=== PATIENT | female | born 1950 | race Caucasian/White ===

== ENCOUNTER 2023-03-03 17:43 | Emergency (ER) | payer MEDICARE, SELFPAY ==
--- NOTE | ~2023-03-03 | XR_ITS ---
EXAMINATION: XR chest 2V Exam Date/Time: 03/03/2023 18:05 CDT HISTORY: cough sob, x 16 days Comparison: 05/17/2007. RESULT: Lines, tubes, and devices: Right breast implant. Right axillary clips. Lungs and pleura: Senescent changes. Calcified left lower lung granuloma. Linear scar/atelectasis in the bilateral lung bases. Cardiomediastinal silhouette: Stable. Other: No acute osseous or upper abdominal finding. IMPRESSION: No acute cardiopulmonary process. Reviewed, dictated and finalized at location K.
[2023-03-03 17:57] VITALS: BP 141/65; PULSE 94; RESP 20; TEMP 35.9; O2SAT 97
--- NOTE | 2023-03-03 18:15 | ED.URI ---
HPI - URI/Sore Throat General Chief Complaint: Upper Respiratory Infection Stated Complaint: coughing Source: patient, family and RN notes reviewed Mode of arrival: ambulatory Limitations: no limitations History of Present Illness HPI Narrative: Patient is a 72-year-old female who presents to the [facility] with with complaints of ongoing cough and congestion since February 15. Patient states that she was seen by her primary care physician on the and was prescribed a 3 day course of azithromycin and Tessalon Perles. Patient states that her symptoms continued and she saw her primary care physician again on the it was prescribed a Medrol Dosepak and albuterol inhaler. Patient states that she has now finished the Medrol Dosepak but her symptoms have persisted. Patient reports a frequent productive cough with clear sputum. She reports nasal congestion and drainage. Denies recent fevers or chills. Denies sore throat, ear pain. Denies new shortness of or chest pain. States that she has intermittent shortness of breath due to smoking. Her respirations are currently unlabored. Related Data Home Medications Medication Instructions Recorded Confirmed albuterol sulfate 90 mcg/actuation 2 puff inhalation Q4H PRN 03/03/23 03/03/23 aerosol inhaler Shortness Of Breath Or Wheezing amitriptyline 50 mg tablet 50 mg PO DAILY 03/03/23 03/03/23 bupropion HCl 150 mg 24 hr tablet, 150 mg PO DAILY 03/03/23 03/03/23 extended release oxycodone-acetaminophen 7.5 mg-325 1 tablet PO QID 03/03/23 03/03/23 mg tablet trazodone 50 mg tablet 50 mg PO QHS 03/03/23 03/03/23 venlafaxine 150 mg 150 mg PO DAILY 03/03/23 03/03/23 capsule,extended release 24 hr Allergies Allergy/AdvReac Type Severity Reaction Status Date / Time No Known Allergies Allergy Verified 03/03/23 18:05 Review of Systems Review of Systems: CONSTITUTIONAL: Denies fever, chills, or sweats. EYES: Denies visual changes, redness, or discharge. ENT: Denies otalgia and sore throat. Reports nasal congestion and drainage. CARDIOVASCULAR: Denies chest pain, palpitations, or edema. RESPIRATORY: Reports cough but dyspnea. GASTROINTESTINAL: Denies abdominal pain, nausea, vomiting, or diarrhea. GENITOURINARY: Denies dysuria or hematuria. SKIN: Denies rash or itching. MUSCULOSKELETAL: Denies back pain, joint pain, or myalgia. NEUROLOGIC: Denies headache, numbness, or weakness. Pertinent positives per HPI. PMFSH Family History Family History Father Carcinoma of colon Social History Social History Alcohol intake: never Comments At the time of my signature, I reviewed and agree with the nursing past medical, surgical, social, and family history. There is no relevant family history pertinent to the patient complaint. Exam Narrative: GENERAL: This is a well-nourished, well-developed patient, in no apparent distress. HEAD: normocephalic, atraumatic. EYES: Sclera clear/white. Vision is grossly intact. EARS: External ears normal, auditory canals clear and without drainage, TMs normal without perforation. Hearing grossly intact. NOSE: External nose normal with no obvious nasal discharge, nares without redness, no rhinorrhea. THROAT: Mucous membranes moist, posterior pharynx clear. NECK: Neck supple, non-tender without lymphadenopathy, masses or thyromegaly. CARDIOVASCULAR: Regular rate and rhythm without murmurs, gallops, or rubs. RESPIRATORY: Clear to auscultation. Breath sounds equal bilaterally. No wheezes, rales, or rhonchi. GASTROINTESTINAL: Abdomen soft, non-tender, nondistended. Bowel sounds are active. No hepato-splenomegaly, or palpable masses. No guarding. SKIN: warm, intact with no suspicious lesions or rash, good texture and turgor. NEURO: awake, alert, and oriented to person, place and time. There were no obvious focal neurologic abnormal
== END 2023-03-03 18:46 | disposition home or self-care (01) ==
PROVIDERS: Emergency Provider Nurse Practitioner; PCP Physician Assistant
DX: J01.90 Acute sinusitis, unspecified (principal); Z20.822 Contact with and (suspected) exposure to COVID-19; F17.200 Nicotine dependence, unspecified, uncomplicated; F32.A Depression, unspecified; Z85.3 Personal history of malignant neoplasm of breast; Z90.11 Acquired absence of right breast and nipple
CPT/HCPCS: 71046; 87426; 99203; C9803; G0463